=== PATIENT | male | born 1965 | race African-American/Black ===

== ENCOUNTER 2017-09-18 14:49 | Emergency (ER) | payer BC ==
[2017-09-18] MEDS ORDERED: Sodium Chloride 0.9% 1,000 ML IV ONE (15:36)
[2017-09-18 15:51] LABS: BASO # 0.1 K/uL (0.0-0.2); BASO % 0.4 % (0.0-2.0); EOS # 0.2 K/uL (0.0-0.7); EOS % 1.1 % (0.0-4.0); HEMOGLOBIN 13.9 g/dL (12.0-18.0); LYMPH # 2.4 K/uL (1.0-4.3); LYMPH % 13.4 % (20.0-40.0); MEAN CELL VOLUME 87.6 fL (80.0-94.0); MEAN CORPUSCULAR HGB CONC 33.1 g/dL (33.0-37.0); MEAN PLATELET VOLUME 9.3 fL (7.2-11.7); MONO # 1.2 K/uL (0.0-0.8); MONO % 6.7 % (0.0-10.0); NEUT % 78.4 % (50.0-75.0); RBC 4.81 Mil/uL (4.40-5.90); WHITE BLOOD COUNT 17.9 K/uL (4.8-10.8)
[2017-09-18] MEDS ORDERED: Sodium Chloride 0.9% 1,000 ML ONE (15:51)
[2017-09-18 16:03] LABS: ALB/GLOB RATIO 1.2 (1.0-2.1); ALBUMIN 4.3 g/dL (3.5-5.0); ALT/SGPT 44 U/L (21-72); AST/SGOT 31 U/L (17-59); BLOOD UREA NITROGEN 13 mg/dL (9-20); CALCIUM 9.4 mg/dl (8.6-10.4); GFR AFRICAN-AMERICAN > 60; GFR NON-AFRICAN AMERICAN > 60; LIPASE 131 U/L (23-300)
[2017-09-18 17:09] LABS: URINE BILIRUBIN NEGATIVE (NEGATIVE); URINE BLOOD 3+ (NEGATIVE); URINE CLARITY Hazy (Clear); URINE COLOR Yellow (YELLOW); URINE GLUCOSE (UA) NORMAL (Normal); URINE LEUKOCYTE ESTERASE NEG Leu/uL (Negative); URINE PROTEIN 1+ mg/dL (NEGATIVE); URINE UROBILINOGEN NORMAL mg/dL (0.2-1.0)
--- NOTE | 2017-09-18 18:10 | CT ---
PROCEDURE: CT Abdomen and Pelvis without intravenous contrast HISTORY: LLQ pain, microscopic hematuria COMPARISON: None. TECHNIQUE: Helical CT of the abdomen and pelvis was performed without oral or intravenous contrast as per referring physician request.. Contrast Dose: None Radiation dose: Total exam DLP = mGy-cm. This CT exam was performed using one or more of the following dose reduction techniques: Automated exposure control, adjustment of the mA and/or kV according to patient size, and/or use of iterative reconstruction technique. FINDINGS: LOWER THORAX: UnremarkableTrace dependent atelectasis right base. Lower thorax otherwise unremarkable.. LIVER: Unremarkable. No gross lesion or ductal dilatation. GALLBLADDER AND BILE DUCTS: Unremarkable. PANCREAS: Unremarkable. No gross lesion or ductal dilatation. SPLEEN: Unremarkable. ADRENALS: Unremarkable. No mass. KIDNEYS AND URETERS: Unremarkable. No hydronephrosis. No solid massRight kidney appears unremarkable. Mild left hydronephrosis appreciated as well as proximal hydroureter caused by a 6.1 x 5.7 x 7.5 mm obstructing calculus of the proximal left ureter just distal to the left ureteropelvic junction. Limited left perinephric reaction is identified. Urinary bladder appears unremarkable. VASCULATURE: Unremarkable. No aortic aneurysm. BOWEL: Unremarkable. No obstruction. No gross mural thickening. APPENDIX: Unremarkable. Normal appendix. PERITONEUM: Unremarkable. No free fluid. No free air. LYMPH NODES: Unremarkable. No enlarged lymph nodes. BLADDER: Unremarkable. REPRODUCTIVE: Unremarkable. BONES: No acute fracture. OTHER FINDINGS: None. IMPRESSION: A 7.5 mm calculus obstructs the proximal left ureter causing mild left hydroureteroephrosis including perinephric reaction. No additional radiodense urolithiasis bilaterally. No right-sided obstructive uropathy.
[2017-09-18] MEDS ORDERED: cefTRIAXone IV 1 gm in Dextros 50 ML IVPB ONE ×2 (18:19→18:29)
--- NOTE | 2017-09-18 18:50 | C.PDOC ---
Time Seen by Provider: 09/18/17 15:03 Chief Complaint (Nursing): Abdominal Pain History Per: Patient Onset/Duration Of Symptoms: Hrs, Waxing/Waning Severity: Severe Location Of Pain/Discomfort: LLQ Radiation Of Pain To:: Flank Quality Of Discomfort: "Pain" Associated Symptoms: Nausea, Vomiting, Back Pain Exacerbating Factors: None Alleviating Factors: None Last Bowel Movement: Yesterday Additional History Per: Prior Records Past Medical History Reviewed: Historical Data, Nursing Documentation, Vital Signs Vital Signs: Last Vital Signs Temp 97.6 F 09/18/17 18:40 Pulse 71 09/18/17 18:40 Resp 16 09/18/17 18:40 BP 150/98 H 09/18/17 18:40 Pulse Ox 100 09/18/17 18:53 - Medical History PMH: No Chronic Diseases Surgical History: No Surg Hx Family History: States: Unknown Family Hx - Social History Hx Alcohol Use: No Hx Substance Use: No Review Of Systems Except As Marked, All Systems Reviewed And Found Negative. Constitutional: Negative for: Fever, Weakness Cardiovascular: Negative for: Chest Pain Respiratory: Negative for: Shortness of Breath Gastrointestinal: Positive for: Nausea, Vomiting, Abdominal Pain. Negative for : Diarrhea, Hematemesis Genitourinary: Positive for: Hematuria (?). Negative for: Dysuria Musculoskeletal: Negative for: Neck Pain Skin: Negative for: Rash Neurological: Negative for: Weakness, Numbness Physical Exam - Physical Exam Appears: Non-toxic, No Acute Distress, Other (Uncomfortable) Skin: Normal Color, Warm, Dry, No Rash Head: Atraumatic, Normacephalic Eye(s): bilateral: Normal Inspection, PERRL, EOMI Neck: Normal ROM, Supple Cardiovascular: Rhythm Regular Respiratory: Normal Breath Sounds, No Accessory Muscle Use Gastrointestinal/Abdominal: Soft, Tenderness (LLQ), No Distention, No Guarding, No Rebound Back: No CVA Tenderness Extremity: Normal ROM Neurological/Psych: Oriented x3, Normal Motor, Normal Sensation ED Course And Treatment - Laboratory Results Result Diagrams: 09/18/17 15:48 09/18/17 15:48 Lab Interpretation: Abnormal Interpretation Of Abnormal: Leukocytosis. Hematuria. O2 Sat by Pulse Oximetry: 100 Pulse Ox Interpretation: Normal - CT Scan/US CT abd/pelv Other Rad Studies (CT/US): Read By Radiologist, Radiology Report Reviewed CT/US Interpretation: IMPRESSION: A 7.5 mm calculus obstructs the proximal left ureter causing mild left hydroureteroephrosis including perinephric reaction. No additional radiodense urolithiasis bilaterally. No right-sided obstructive uropathy. - Physician Consult Information Physician Contacted: Binh Garcia (Urology) Outcome Of Conversation: He wants pt to receive Rocephin 1g IV and a KUB, and then be discharged home on Keflex and Flomax. He will see pt in his office on Saturday. Progress - Interventions Interventions:: Observation, Intravenous fluid - Medications Administered Intravenous: H-2 abida, NSAID - Data Reviewed Data Reviewed: Lab, Diagnostic imaging, Old records - Patient Status Patient status: Mostly improved - Continuity of Care Discussed patient case with:: Patient, ED Nurse Discussed pt. case with outside sales consultant/specialty: Urology - Patient Plan Patient Plan: Discharge, F/U with PCP Disposition Counseled Patient/Family Regarding: Studies Performed, Diagnosis, Need For Followup, Rx Given - Disposition Referrals: Binh Garcia MD [Staff Provider] - Disposition: HOME/ ROUTINE Disposition Time: 18:57 Condition: IMPROVED Additional Instructions: Drink plenty of fluids. Follow up with the Urologist within 5 days for further evaluation and treatment. Return to the ER if you develop fever, vomiting, trouble urinating, worsening of symptoms or if you have any other concerns. Prescriptions: Cephalexin [Keflex] 500 mg PO BID #28 capsule Naproxen [Naprosyn] 1 tab PO BID PRN #20 tab PRN Reason: Pain Tamsulosin [Flomax] 0.4 mg PO HS #30 cap Instructions: Renal Colic (DC) Forms: [employer] (Lebanese) - Clinical Impression Clinical Impression: Calculus of proximal left ureter
--- NOTE | 2017-09-18 18:55 | RAD ---
HISTORY: Left proximal ureter calculus COMPARISON: No prior. FINDINGS: BOWEL: Normal abdominal bowel gas pattern. No hepatic or splenic enlargement. 8 mm triangular Noe shaped calculus adjacent to the left L2 transverse process. Consistent with proximal left ureteral calculus demonstrated on CT examination of the same date. . No other abnormal intra-abdominal calcifications are appreciated. BONES: Normal. OTHER FINDINGS: None. IMPRESSION: 8 mm proximal left ureteral calculus.
[2017-09-19 11:04] VITALS: BP 150/98; PULSE 71; RESP 16; TEMP 97.6; O2SAT 100
== END 2017-09-18 19:16 | disposition home or self-care (01) ==
LOC: C.ER 14:49
DX: N20.1 Calculus of ureter (principal)
CPT/HCPCS: 74018; 74176; 80053; 81001; 83690; 85025; 96361; 96365; 96375; 99285; J0696; J1885; J7040